=== PATIENT | male | born 1945 | race Caucasian/White ===

== ENCOUNTER 2023-02-27 13:34 | Emergency (ER) | payer OTHER, SELFPAY ==
[2023-02-27 13:44] VITALS: BP 164/73; PULSE 69; RESP 16; TEMP 36.3; O2SAT 95; BMI 30.1
--- NOTE | 2023-02-27 13:56 | DI.RAD.S_ITS ---
PROCEDURE: XR FINGER RT MIN 2V INDICATIONS: injury/deformity TECHNIQUE: AP hand, 2 views of the 4th finger(s) acquired. COMPARISON: None. FINDINGS: Bones: No fractures or dislocations. No suspicious bony lesions. Proximal 4th phalanx obscured by patient's ring Soft tissues: No suspicious soft tissue calcifications. Soft tissue swelling IMPRESSION: No acute bony abnormality. No fracture Approved by: Jon Vicente M.D. on 02/27/2023 at 14:23
[2023-02-27] MEDS: KETOROLAC 30 MG/ML VIAL IM (14:11)
--- NOTE | 2023-02-27 14:13 | ED.UPPEXIN ---
HPI - Extremity Injury (Upper) <Jessica Potter PA-C - Last Filed: 02/27/23 15:30> General Chief Complaint: Extremity Injury, Upper Stated Complaint: FELL/RT RING FINGER INJ Time Seen by Provider: 02/27/23 14:01 Source: patient Mode of arrival: Ambulatory History of Present Illness HPI narrative: Patient is a 77-year-old male who fell on his right outstretched hand and presents with a deformity of the right 4th finger. He is wearing a ring which is quite tight and the finger is painful and swollen. He has been applying ice since arriving in triage but has tried no other therapies. He did not hit his head in the fall. Related Data Allergies Allergy/AdvReac Type Severity Reaction Status Date / Time No Known Drug Allergies Allergy Verified 02/27/23 13:51 Review of Systems <Jessica Potter PA-C - Last Filed: 02/27/23 15:30> Review of Systems ROS Unobtainable: All systems reviewed & are unremarkable except as noted in HPI and below Patient History <Jessica Potter PA-C - Last Filed: 02/27/23 15:30> Social History Smoking Status: Never smoker Smoking Status: Never smoker Substance Use Type: does not use Exam <Jessica Potter PA-C - Last Filed: 02/27/23 15:30> Narrative Exam Narrative: GENERAL: 77 year old patient appears stated age. Well-developed patient, in mild distress. NEURO: AOx3. HEAD: Atraumatic. Normocephalic. EYES: Pupils equal round and reactive. Extraocular motions intact. No scleral icterus. No injection or drainage. ENT: Nose without bleeding or purulent drainage. Airway patent. RESPIRATORY: No distress. EXTREMITIES: Visible deformity of the right 4th finger with a concave shape over the PIP joint. Ring is in place and quite tight. SKIN: No rash Initial Vital Signs Initial Vital Signs: Vital Signs Temperature 97.3 F L 02/27/23 13:44 Pulse Rate 69 02/27/23 13:44 Respiratory Rate 16 02/27/23 13:44 Blood Pressure 164/73 H 02/27/23 13:44 Pulse Oximetry 95 02/27/23 13:44 Oxygen Delivery Method Room Air 02/27/23 13:44 <Estefani Gandhi DO - Last Filed: 02/28/23 11:26> Initial Vital Signs Initial Vital Signs: Vital Signs Temperature 97.3 F L 02/27/23 13:44 Pulse Rate 69 02/27/23 13:44 Respiratory Rate 16 02/27/23 13:44 Blood Pressure 164/73 H 02/27/23 13:44 Pulse Oximetry 95 02/27/23 13:44 Oxygen Delivery Method Room Air 02/27/23 13:44 Procedures <Jessica Potter PA-C - Last Filed: 02/27/23 15:30> Orthopedic Joint Reduction Joint #1: Time of procedure: 14:00 Side: right Joint Reduction Location: finger Analgesia: none Technique used: traction/counter-traction Post-reduction neuro exam: intact Post-reduction vascular: intact Post Reduction X-Ray Obtained: Yes Patient Tolerated Procedure: Well Course <Jessica Potter PA-C - Last Filed: 02/27/23 15:30> Orders Ordered: Discontinued Medications Ketorolac Tromethamine (Ketorolac 30 Mg/Ml Vial) 30 mg IM NOW ONE Stop: 02/27/23 13:57 Last Admin: 02/27/23 14:11 Dose: 30 mg Documented By: KAREN Vital Signs Vital signs: Vital Signs - 8 hr 02/27/23 13:44 Temperature 97.3 F L Pulse Rate 69 Respiratory Rate 16 Blood Pressure 164/73 H Pulse Oximetry 95 Oxygen Delivery Method Room Air <Estefani Gandhi DO - Last Filed: 02/28/23 11:26> Orders Ordered: Discontinued Medications Ketorolac Tromethamine (Ketorolac 30 Mg/Ml Vial) 30 mg IM NOW ONE Stop: 02/27/23 13:57 Last Admin: 02/27/23 14:11 Dose: 30 mg Documented By: KAREN Vital Signs Vital signs: Vital Signs - 8 hr 02/27/23 13:44 Temperature 97.3 F L Pulse Rate 69 Respiratory Rate 16 Blood Pressure 164/73 H Pulse Oximetry 95 Oxygen Delivery Method Room Air MDM - Extremity Injury (Upper) <Jessica Potter PA-C - Last Filed: 02/27/23 15:30> Imaging Data Extremity x-ray #1: Radiologist's Impression: PROCEDURE: XR FINGER RT MIN 2V INDICATIONS: injury/deformity TECHNIQUE: AP hand, 2 views of the 4th finger(s) acquired. COMPARISON: None. FINDINGS: Bones: No fractures or dislocations. No suspicious bony lesions. Proximal 4th phalanx obscured by patient's ring Soft tissues: No suspicious soft tissue calcifications. Soft tissue swelling IMPRESSION: No acute bony abnormality. No fracture Approved by: Jon Vicente M.D. on 02/27/2023 at 14:23 MDM Narrative Medical decision making narrative: Multiple etiologies for patient's symptoms considered including, but not limited to: Dislocation, fracture of the finger. Pain control with IM ketorolac and ice in ER. Finger reduced with simple traction/distraction. Post reduction x-ray obtained. There is no evidence of fracture on the x-ray and the joint appears to be in normal alignment. Discussed RICE with patient and inocente taping to provide support to the joint, as it is likely more lax after this dislocation and may have a recurrent dislocation if under the right stress. Patient's symptoms improved over duration of stay with above-stated therapies. Findings and discharge diagnosis discussed with patient/family followed by verbalization of understanding Return precautions discussed with patient/family whom verbalize understanding of diagnosis and plan Discharge Plan Departure Patient Disposition: Home Clinical Impression: Dislocation of finger PIP joint Qualifiers: Encounter type: initial encounter Qualified Code(s): S63.289A - Dislocation of proximal interphalangeal joint of unspecified finger, initial encounter Instructions: DI for Finger Dislocation Activity Restrictions/Additional Instructions: *You have been diagnosed with a finger dislocation. There is no evidence of fracture on your x-ray and the joint appears to be in good alignment. As we discussed, I would advise her to take ibuprofen or Tylenol for pain, use ice for pain and swelling, keep the finger elevated decrease swelling and use inocente taping to support the finger. When your finger is feeling better and not as swollen, you can stop using the inocente tape. *What to do: *Please continue to take your regular medications as directed. [ ] New medication prescriptions sent to your pharmacy: [ ] [ ] New medication written as a paper prescription [x] No new medications given *Please follow up with your primary care provider in 2-3 days, call for an appointment. Let them know you were seen in the Emergency Department and that we ask that you be seen in follow up. We will electronically transmit a record of today's note if your PCP is in our system *If you do not have a primary care provider please contact the [facility] Resource line at [phone]. They will ask some questions about your medical history and help get you set up with a doctor in the community. *Return to Emergency Department if you should have any new, worsening or concerning symptoms, such as [fever greater than 101 F, shaking chills, worsening pain, persistent vomiting or other concerning symptoms]. Stand Alone Forms: Patient Portal/API ED Sign-out <Estefani Gandhi, - Last Filed: 02/28/23 11:26> Cosign ED Attending Wendyature Attestation: I was immediately available in the department for consultation.
--- NOTE | 2023-02-27 14:40 | PC.NURSE ---
HAO reduced finger. attemted to get ring off. 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 finger is swollen but improved after finger reduction.
[2023-02-27 15:34] VITALS: PULSE 72; RESP 16; O2SAT 99
== END 2023-02-27 15:35 | disposition home or self-care (01) ==
PROVIDERS: Emergency Provider Physician Assistant
DX: S63.284A Dislocation of proximal interphalangeal joint of right ring finger, initial encounter (principal); W19.XXXA Unspecified fall, initial encounter
CPT/HCPCS: 26770; 73140; 99283; J1885